=== PATIENT | female | born 1990 | race Two or more races ===

== ENCOUNTER 2020-08-12 06:56 | Inpatient (IN) | payer BC ==
[2020-08-12] MEDS ORDERED: Misoprostol 25 MCG (1/4 of 100 MCG) Tab ONE ×2 (07:44→07:52)
--- NOTE | 2020-08-12 07:47 | PCM.LDHP ---
L&D History of Present Illness - General Date of Service: 08/12/20 Admit Problem/Dx: Admission Diagnosis/Problem Admission Diagnosis/Problem - History of Present Illness Introduction:: 29 year old at 40w3d here for induction of labor secondary to dates. care with myself. record and labs on the chart and reviewed. Regular care Covid June 02. No complications or issues from that. Improves with: Reports: None Worsens with: Reports: None Associated Symptoms: Reports: N - Related Data Allergies/Adverse Reactions: Allergies Allergy/AdvReac Type Severity Reaction Status Date / Time No Known Allergies Allergy Verified 08/12/20 07:09 Past Medical History - Past Health History Medical/Surgical History: Denies Medical/Surgical History H&P Review of Systems - Review of Systems: Review Of Systems: See Below General: Reports: No Symptoms HEENT: Reports: No Symptoms Pulmonary: Reports: No Symptoms Cardiovascular: Reports: No Symptoms Gastrointestinal: Reports: No Symptoms Genitourinary: Reports: No Symptoms Musculoskeletal: Reports: No Symptoms Skin: Reports: No Symptoms Psychiatric: Reports: No Symptoms Neurological: Reports: No Symptoms Hematologic/Lymphatic: Reports: No Symptoms Immunologic: Reports: No Symptoms L&D Exam - Exam Exam: See Below - Vital Signs Weight: 98.656 kg - OB Specific Fundal Height In cm: 40 Contraction Intensity: Irritability Movement: Active Heart Tones: Present Heart Rate (FHR) Variability: Moderate (6-25 bmp) Presentation: Vertex - Exam General: Alert, Oriented HEENT: PERRLA, Conjunctiva Clear, EACs Clear, EOMI, Hearing Intact, Mucosa Moist & Metz, Nares Patent, Normal Nasal Septum, Posterior Pharynx Clear, TMs Clear Neck: Supple, Trachea Midline Lungs: Clear to Auscultation, Normal Respiratory Effort Cardiovascular: Regular Rate, Regular Rhythm GI/Abdominal Exam: Normal Bowel Sounds, Soft, Non-Tender, No Organomegaly, No Distention, No Abnormal Bruit, No Mass, Pelvis Stable Genitourinary: Normal external exam Extremities: Normal Inspection, Normal Range of Motion, Non-Tender, No Pedal Edema, Normal Capillary Refill Skin: Warm, Dry, Intact Neurological: Cranial Nerves Intact, Reflexes Equal Bilateral Psychiatric: Alert, Normal Affect, Normal Mood Problem List Initiated/Reviewed/Updated: Yes Orders Last 24hrs: Active Orders 24 hr Category Date Time Status Patient Status Manage Transfer [TRANSFER] Routine ADT 08/12/20 07:39 Ordered Assessment/Plan Comment:: Admit. Cytotec and recheck in 4 hours or sooner prn. Mayo bulb at that point or if sufficient change pitocin.
[2020-08-12] MEDS ORDERED: Ondansetron 4 MG/2 ML SDV IVPUSH PRN ×2 (08:27→11:21)
[2020-08-12] MEDS ORDERED: Nalbuphine 10 MG/ML Syringe IVPUSH PRN (08:27)
[2020-08-12] MEDS ORDERED: Sodium Chloride 0.9% 10 ML Syringe FLUSH PRN ×2 (08:27→12:32)
[2020-08-12] MEDS ORDERED: Oxytocin/Lactated Ringers 10 UNIT/1,000 ML BAG IV SCH (08:30)
[2020-08-12] MEDS ORDERED: fentaNYL 100 MCG/2 ML SDV EPIDUR PRN (11:21)
[2020-08-12] MEDS ORDERED: ePHEDrine 50 MG/ML SDV IVPUSH PRN (11:21)
--- NOTE | 2020-08-12 11:30 | PCM.PREANE ---
Preanesthetic Assessment - Procedure Proposed Procedure: Epidural - Anesthesia/Transfusion/Family Hx Anesthesia History: Prior Anesthesia Without Reaction Family History of Anesthesia Reaction: No Transfusion History: No Prior Transfusion(s) Intubation History: Unknown - Review of Systems Pulmonary: No Symptoms (No ETOH with ) Cardiovascular: Edema (with slightly) Gastrointestinal: No Symptoms (GERD) Neurological: Numbness (Bilateral CTS with ) Other: Reports: None - Physical Assessment NPO Status Date: 08/12/20 NPO Status Time: 10:00 Vital Signs: Last Vital Signs Temp 36.8 C 08/12/20 08:27 Pulse 99 08/12/20 08:27 Resp 16 08/12/20 08:27 BP 128/74 08/12/20 08:27 Pulse Ox 98 08/12/20 08:27 Height: 1.63 m Weight: 98.656 kg ASA Class: 2 Mental Status: Alert & Oriented x3 Airway Class: Mallampati = 2 (3) Dentition: Reports: Normal Dentition, Caries Thyro-Mental Finger Breadths: 3 Mouth Opening Finger Breadths: 3 ROM/Head Extension: Full Lungs: Clear to Auscultation, Normal Respiratory Effort Cardiovascular: Regular Rate, Regular Rhythm, No Murmurs - Lab Values: Laboratory Last Values WBC 8.80 K/mm3 (3.98-10.04) 08/12/20 08:45 RBC 4.68 M/mm3 (3.98-5.22) 08/12/20 08:45 Hgb 12.9 gm/dl (11.2-15.7) 08/12/20 08:45 Hct 39.8 % (34.1-44.9) 08/12/20 08:45 MCV 85.0 fl (79.4-94.8) 08/12/20 08:45 MCH 27.6 pg (25.6-32.2) 08/12/20 08:45 MCHC 32.4 g/dl (32.2-35.5) 08/12/20 08:45 RDW Std Deviation 46.2 fL (36.4-46.3) 08/12/20 08:45 Plt Count 167 K/mm3 (182-369) L 08/12/20 08:45 MPV 11.9 fl (9.4-12.3) 08/12/20 08:45 Neut % (Auto) 72.6 % (34.0-71.1) H 08/12/20 08:45 Lymph % (Auto) 16.9 % (19.3-51.7) L 08/12/20 08:45 [place] % (Auto) 8.2 % (4.7-12.5) 08/12/20 08:45 Eos % (Auto) 1.5 (0.7-5.8) 08/12/20 08:45 Baso % (Auto) 0.1 % (0.1-1.2) 08/12/20 08:45 Neut # (Auto) 6.39 K/mm3 (1.56-6.13) H 08/12/20 08:45 Lymph # (Auto) 1.49 K/mm3 (1.18-3.74) 08/12/20 08:45 [place] # (Auto) 0.72 K/mm3 (0.24-0.36) H 08/12/20 08:45 Eos # (Auto) 0.13 K/mm3 (0.04-0.36) 08/12/20 08:45 Baso # (Auto) 0.01 K/mm3 (0.01-0.08) 08/12/20 08:45 Above labs reviewed and noted and within acceptable ranges to proceed with epidural if desired. 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: - Past Surgical History HEENT Surgical History: Reports: Oral Surgery GI Surgical History: Reports: Appendectomy - SUBSTANCE USE Tobacco Use Status *Q: Former Tobacco User Tobacco Use Within Last Twelve Months: Cigarettes Recreational Drug Use History: No - HOME MEDS Home Medications: Home Meds Calcium Carbonate/Vitamin D3 [Calcium 500+D Tablet Chew] 1 ea PO DAILY 08/12/20 [History] Ferrous Sulfate [Iron] 325 mg PO DAILY 08/12/20 [History] Vits #93/Iron Fum/FA [ Formula Tablet] 1 ea PO DAILY 08/12/20 [History] - CURRENT (IN HOUSE) MEDS Current Meds: Current Medications Ephedrine Sulfate (Ephedrine Sulfate) 5 mg IVPUSH ASDIRECTED PRN PRN Reason: Hypotension Fentanyl (Sublimaze) 100 mcg EPIDUR Q3H PRN PRN Reason: Pain Stop: 08/12/20 23:00 Fentanyl/Bupivacaine HCl (Fentanyl/Bupivacaine/Ns 2 Mcg-0.125% 100 Ml) 100 ml EPIDUR ASDIRECTED VERO Lactated Ringer's (Ringers, Lactated) 1,000 mls @ 100 mls/hr IV ASDIRECTED VERO Oxytocin/Lactated Ringer's (Pitocin In Lr 10 Units/1,000 Ml) 10 unit in 1,000 mls @ 12 mls/hr IV TITRATE VERO; Protocol Oxytocin/Lactated Ringer's (Pitocin In Lr 10 Units/1,000 Ml) 10 unit in 1,000 mls @ 500 mls/hr IV .CONTINUOUS VERO Misoprostol (Cytotec) 50 mcg VAG ONETIME ONE Stop: 08/12/20 12:01 Nalbuphine HCl (Nubain) 10 mg IVPUSH Q2H PRN PRN Reason: Pain Ondansetron HCl (Zofran) 4 mg IVPUSH Q4H PRN PRN Reason: Nausea/Vomiting Ondansetron HCl (Zofran) 4 mg IVPUSH ONETIME PRN PRN Reason: Nausea/Vomiting Stop: 08/12/20 23:00 Sodium Chloride (Saline Flush) 10 ml FLUSH ASDIRECTED PRN PRN Reason: Keep Vein Open Discontinued Medications Miscellaneous Medication (Phenylephrine 1 Mg/10 Ml-Ns) 0 mg IVPUSH ONETIME ONE Stop: 08/12/20 11:22 Misoprostol (Cytotec) Confirm Administered Dose 25 mcg .ROUTE .STK-MED ONE Stop: 08/12/20 07:45 Last Admin: 08/12/20 07:54 Dose: 25 mcg Documented by: Misoprostol (Cytotec) Confirm Administered Dose 25 mcg .ROUTE .STK-MED ONE Stop: 08/12/20 07:53 Last Admin: 08/12/20 07:54 Dose: 25 mcg Documented by:
[2020-08-12] MEDS ORDERED: Misoprostol 25 MCG (1/4 of 100 MCG) Tab VAG ONE (12:00)
[2020-08-12] MEDS ORDERED: Lactated Ringers 1,000 ML IV SCH (12:32)
[2020-08-12] MEDS: Lactated Ringers 1,000 ML IV SCH ×3 (15:26→19:15)
--- NOTE | 2020-08-12 17:21 | PCM.PNLD ---
Labor Progress Note - VS & Meds Vital Signs: Last Vital Signs Temp 36.8 C 08/12/20 08:27 Pulse 99 08/12/20 08:27 Resp 16 08/12/20 08:27 BP 128/74 08/12/20 08:27 Pulse Ox 98 08/12/20 08:27 Active Medications: Current Medications Ephedrine Sulfate (Ephedrine Sulfate) 5 mg IVPUSH ASDIRECTED PRN PRN Reason: Hypotension Fentanyl (Sublimaze) 100 mcg EPIDUR Q3H PRN PRN Reason: Pain Stop: 08/12/20 23:00 Fentanyl/Bupivacaine HCl (Fentanyl/Bupivacaine/Ns 2 Mcg-0.125% 100 Ml) 100 ml EPIDUR ASDIRECTED VERO Lactated Ringer's (Ringers, Lactated) 1,000 mls @ 100 mls/hr IV ASDIRECTED VERO Last Admin: 08/12/20 15:26 Dose: 100 mls/hr Documented by: Oxytocin/Lactated Ringer's (Pitocin In Lr 10 Units/1,000 Ml) 10 unit in 1,000 mls @ 12 mls/hr IV TITRATE VERO; Protocol Oxytocin/Lactated Ringer's (Pitocin In Lr 10 Units/1,000 Ml) 10 unit in 1,000 mls @ 500 mls/hr IV .CONTINUOUS VERO Nalbuphine HCl (Nubain) 10 mg IVPUSH Q2H PRN PRN Reason: Pain Ondansetron HCl (Zofran) 4 mg IVPUSH Q4H PRN PRN Reason: Nausea/Vomiting Sodium Chloride (Saline Flush) 10 ml FLUSH ASDIRECTED PRN PRN Reason: Keep Vein Open Discontinued Medications Lactated Ringer's (Ringers, Lactated) 1,000 mls @ 40 mls/hr IV ASDIRECTED VERO Miscellaneous Medication (Phenylephrine 1 Mg/10 Ml-Ns) 0 mg IVPUSH ONETIME ONE Stop: 08/12/20 11:22 Last Admin: 08/12/20 16:10 Dose: Not Given Documented by: Misoprostol (Cytotec) Confirm Administered Dose 25 mcg .ROUTE .STK-MED ONE Stop: 08/12/20 07:45 Last Admin: 08/12/20 07:54 Dose: 25 mcg Documented by: Misoprostol (Cytotec) Confirm Administered Dose 25 mcg .ROUTE .STK-MED ONE Stop: 08/12/20 07:53 Last Admin: 08/12/20 07:54 Dose: 25 mcg Documented by: Misoprostol (Cytotec) 50 mcg VAG ONETIME ONE Stop: 08/12/20 12:01 Last Admin: 08/12/20 12:10 Dose: 25 mcg Documented by: Ondansetron HCl (Zofran) 4 mg IVPUSH ONETIME PRN PRN Reason: Nausea/Vomiting Stop: 08/12/20 23:00 Sodium Chloride (Saline Flush) 10 ml FLUSH ASDIRECTED PRN PRN Reason: Keep Vein Open - Uterine Contractions Contraction Intensity: Irritability Uterine Resting Tone: Soft - Monitoring Heart Rate (FHR) Baseline: 150 Heart Rate (FHR) Variability: Moderate (6-25 bmp) Accelerations: Present, 15x15 Decelerations: None Strip Review: Category I - Vaginal Exam Dilation (cm): 1 Effacement (Percent): 20 Station: -3 - Labor Progress (Free Text) Labor Progress: Term induction. Progressing well. Cytotec placed
[2020-08-12] MEDS: Bupivacaine/fentaNYL/NS 100 ML Bag EPIDUR SCH (18:37)
[2020-08-12] MEDS: Oxytocin/Lactated Ringers 10 UNIT/1,000 ML BAG IV SCH (21:49)
[2020-08-13] MEDS ORDERED: Bupivacaine 0.25% 10 ML SDV ONE (02:00)
[2020-08-13] MEDS: Lactated Ringers 1,000 ML IV SCH ×3 (02:25→09:57)
[2020-08-13] MEDS: Bupivacaine/fentaNYL/NS 100 ML Bag EPIDUR SCH ×2 (04:26→14:11)
[2020-08-13] MEDS: Oxytocin/Lactated Ringers 10 UNIT/1,000 ML BAG IV SCH (09:58)
[2020-08-13] MEDS ORDERED: Acetaminophen 325 MG Tab PO ONE (10:23)
[2020-08-13] MEDS ORDERED: Citric Acid/Sodium Citrate Solution 30 ML Cup PO ONE (15:43)
[2020-08-13] MEDS ORDERED: Metoclopramide 10 MG/2 ML SDV IVPUSH ONE (15:43)
[2020-08-13] MEDS ORDERED: Metoclopramide 10 MG/2 ML SDV ONE (15:51)
[2020-08-13] MEDS ORDERED: Citric Acid/Sodium Citrate Solution 30 ML Cup ONE (15:51)
[2020-08-13] MEDS ORDERED: Lactated Ringers 2,000 ML ONE (16:05)
[2020-08-13] MEDS ORDERED: Ketorolac 30 MG/ML SDV ONE (16:05)
[2020-08-13] MEDS ORDERED: ceFAZolin 1 GM Vial ONE (16:05)
[2020-08-13] MEDS ORDERED: Oxytocin 10 Units/1 ML SDV ONE (16:05)
[2020-08-13] MEDS ORDERED: Ondansetron 4 MG/2 ML SDV ONE (16:05)
[2020-08-13] MEDS ORDERED: Morphine PF 10 MG/10 ML SDV ONE (16:06)
[2020-08-13] MEDS ORDERED: Sodium Bicarbonate 8.4% 50 MEQ/50 ML SDV ONE (16:08)
[2020-08-13] MEDS ORDERED: Lidocaine 2% with EPINEPHrine 1:200,000 20 ML SDV ONE (16:08)
[2020-08-13] MEDS ORDERED: Azithromycin 500 MG in Sodium Chloride 0.9% 250 ML IV ONE (16:10)
--- NOTE | 2020-08-13 16:17 | PCM.PNLD ---
Labor Progress Note - VS & Meds Vital Signs: Last Vital Signs Temp 36.8 C 08/12/20 08:27 Pulse 99 08/12/20 08:27 Resp 16 08/12/20 08:27 BP 128/74 08/12/20 08:27 Pulse Ox 98 08/12/20 08:27 Active Medications: Current Medications Ephedrine Sulfate (Ephedrine Sulfate) 5 mg IVPUSH ASDIRECTED PRN PRN Reason: Hypotension Fentanyl/Bupivacaine HCl (Fentanyl/Bupivacaine/Ns 2 Mcg-0.125% 100 Ml) 100 ml EPIDUR ASDIRECTED VERO Last Admin: 08/13/20 14:11 Dose: 100 ml Documented by: Lactated Ringer's (Ringers, Lactated) 1,000 mls @ 100 mls/hr IV ASDIRECTED VERO Last Admin: 08/13/20 09:57 Dose: 100 mls/hr Documented by: Oxytocin/Lactated Ringer's (Pitocin In Lr 10 Units/1,000 Ml) 10 unit in 1,000 mls @ 12 mls/hr IV TITRATE VERO; Protocol Last Titration: 08/13/20 13:30 Dose: 25 munits/min, 150 mls/hr Documented by: Oxytocin/Lactated Ringer's (Pitocin In Lr 10 Units/1,000 Ml) 10 unit in 1,000 mls @ 500 mls/hr IV .CONTINUOUS VERO Azithromycin 500 mg/ Sodium (Chloride) 250 mls @ 250 mls/hr IV ONETIME ONE Stop: 08/13/20 17:09 Nalbuphine HCl (Nubain) 10 mg IVPUSH Q2H PRN PRN Reason: Pain Ondansetron HCl (Zofran) 4 mg IVPUSH Q4H PRN PRN Reason: Nausea/Vomiting Sodium Chloride (Saline Flush) 10 ml FLUSH ASDIRECTED PRN PRN Reason: Keep Vein Open Discontinued Medications Acetaminophen (Tylenol) 650 mg PO NOW ONE Stop: 08/13/20 10:24 Last Admin: 08/13/20 10:27 Dose: 650 mg Documented by: Cefazolin Sodium (Ancef) Confirm Administered Dose 2 gm .ROUTE .STK-MED ONE Stop: 08/13/20 16:06 Citric Acid/Sodium Citrate (Bicitra Solution) 30 ml PO ONETIME ONE Stop: 08/13/20 15:44 Last Admin: 08/13/20 16:07 Dose: 30 ml Documented by: Citric Acid/Sodium Citrate (Bicitra Solution) Confirm Administered Dose 30 ml .ROUTE .STK-MED ONE Stop: 08/13/20 15:52 Fentanyl (Sublimaze) 100 mcg EPIDUR Q3H PRN PRN Reason: Pain Stop: 08/12/20 23:00 Last Admin: 08/12/20 18:37 Dose: 100 mcg Documented by: Lactated Ringer's (Ringers, Lactated) 1,000 mls @ 40 mls/hr IV ASDIRECTED VERO Lactated Ringer's (Ringers, Lactated) Confirm Administered Dose 2,000 mls @ as directed .ROUTE .STK-MED ONE Stop: 08/13/20 16:06 Ketorolac Tromethamine (Toradol) Confirm Administered Dose 30 mg .ROUTE .STK-MED ONE Stop: 08/13/20 16:06 Lidocaine/Epinephrine (Xylocaine-Mpf 2%-Epi 1:200,000) Confirm Administered Dose 20 ml .ROUTE .STK-MED ONE Stop: 08/13/20 16:09 Metoclopramide HCl (Reglan) 10 mg IVPUSH ONETIME ONE Stop: 08/13/20 15:44 Last Admin: 08/13/20 16:07 Dose: 10 mg Documented by: Metoclopramide HCl (Reglan) Confirm Administered Dose 10 mg .ROUTE .STK-MED ONE Stop: 08/13/20 15:52 Miscellaneous Medication (Phenylephrine 1 Mg/10 Ml-Ns) 0 mg IVPUSH ONETIME ONE Stop: 08/12/20 11:22 Last Admin: 08/12/20 16:10 Dose: Not Given Documented by: Misoprostol (Cytotec) Confirm Administered Dose 25 mcg .ROUTE .STK-MED ONE Stop: 08/12/20 07:45 Last Admin: 08/12/20 07:54 Dose: 25 mcg Documented by: Misoprostol (Cytotec) Confirm Administered Dose 25 mcg .ROUTE .STK-MED ONE Stop: 08/12/20 07:53 Last Admin: 08/12/20 07:54 Dose: 25 mcg Documented by: Misoprostol (Cytotec) 50 mcg VAG ONETIME ONE Stop: 08/12/20 12:01 Last Admin: 08/12/20 12:10 Dose: 25 mcg Documented by: Morphine Sulfate (Duramorph Pf) Confirm Administered Dose 10 mg .ROUTE .STK-MED ONE Stop: 08/13/20 16:07 Ondansetron HCl (Zofran) 4 mg IVPUSH ONETIME PRN PRN Reason: Nausea/Vomiting Stop: 08/12/20 23:00 Ondansetron HCl (Zofran) Confirm Administered Dose 4 mg .ROUTE .STK-MED ONE Stop: 08/13/20 16:06 Oxytocin (Pitocin) Confirm Administered Dose 10 unit .ROUTE .STK-MED ONE Stop: 08/13/20 16:06 Sodium Bicarbonate (Sodium Bicarbonate 8.4%) Confirm Administered Dose 50 meq .ROUTE .STK-MED ONE Stop: 08/13/20 16:09 Sodium Chloride (Saline Flush) 10 ml FLUSH ASDIRECTED PRN PRN Reason: Keep Vein Open - Uterine Contractions Contraction Intensity: Irritability Uterine Resting Tone: Soft - Monitoring Heart Rate (FHR) Baseline: 150 Heart Rate (FHR) Variability: Moderate (6-25 bmp) Accelerations: Present, 15x15 Decelerations: None Strip Review: Category I - Vaginal Exam Dilation (cm): 10 Effacement (Percent): 20 Station: -3 Cervical Position: Midposition - Labor Progress (Free Text) Labor Progress: Pushing x 2 hours. tachycardia. Minimal descent. Proceed with 1ltcs. RBA discussed. States understanding and wishes to proceed.
[2020-08-13] MEDS ORDERED: diphenhydrAMINE 50 MG/ML SDV IVPUSH PRN ×2 (16:39→19:00)
[2020-08-13] MEDS ORDERED: Ondansetron 4 MG/2 ML SDV IVPUSH PRN (16:39)
[2020-08-13] MEDS ORDERED: fentaNYL 100 MCG/2 ML SDV IVPUSH PRN (16:39)
[2020-08-13] MEDS ORDERED: Bupivacaine 0.5% 30 ML SDV ONE (16:41)
[2020-08-13] MEDS ORDERED: Meperidine 50 MG/ML Vial ONE (17:00)
--- NOTE | 2020-08-13 17:25 | PCM.POSTAN ---
POST ANESTHESIA ASSESSMENT - MENTAL STATUS Mental Status: Alert, Oriented - VITAL SIGNS Vital Signs: Last Vital Signs Temp 98.2 F 08/12/20 08:27 Pulse 99 08/12/20 08:27 Resp 16 08/12/20 08:27 BP 128/74 08/12/20 08:27 Pulse Ox 98 08/12/20 08:27 1721 80 19 99.5 101/51 - RESPIRATORY Respiratory Status: Respiratory Rate WNL, Airway Patent, O2 Saturation Stable - CARDIOVASCULAR CV Status: Pulse Rate WNL, Blood Pressure Stable - GASTROINTESTINAL GI Status: No Symptoms - PAIN Pain Score: 0 - POST OP HYDRATION Hydration Status: Adequate & Stable
--- NOTE | 2020-08-13 17:49 | PCM.OPNOTE ---
- General Post-Op/Procedure Note Date of Surgery/Procedure: 08/13/20 Operative Procedure(s): primary section Findings: Viable male, 4520g, 8/9 APGARS at 1646. Vertex. Normal uterus tubes and ovaries. Small posterior fibroid 1.5 cm. Pre Op Diagnosis: failure to descend Post-Op Diagnosis: Same Anesthesia Technique: Epidural Primary Surgeon: Rachell Serrano Long Term Care Social Worker: Tammy Mojica Long Term Care Social Worker: Haley Foy Reason Long Term Care Social Worker Was Necessary: retraction, patient safety. Output, Urine Amount: 125 EBL in mLs: 1,000 Drain/Tube Comments:: anthony Complications: None Condition: Good Free Text/Narrative:: Intake & Output 08/13/20 08/13/20 08/13/20 06:59 14:59 22:59 Intake Total 2000 540 3490 Output Total 1500 Balance 2000 -960 3490 The patient was taken to the operating room where epidural anesthesia was dosed to surgical levels without difficulty. The patient was prepped and draped in the usual sterile fashion in the dorsal supine position with a leftward tilt. A Pfannenstiel skin incision was made with the scalpel and carried through to the underlying layer of fascia. The fascia was incised in the midline and extended laterally using Duncan scissors. Blanche clamps were used to elevate the superior aspect of the fascial incision, which was elevated, and the underlying rectus muscles were dissected off bluntly and using Duncan scissors. Attention was then turned to the inferior aspect of the fascial incision, which in similar fashion was grasped with Blanche clamps, elevated, and the underlying rectus muscles were dissected off bluntly and using the duncan. The rectus muscles were dissected in the midline. The peritoneum was entered bluntly; this incision was extended superiorly and inferiorly with good visualization of the bladder. The bladder blade was inserted. The vesicouterine peritoneum was identified and entered sharply using Metzenbaum scissors. This incision was extended laterally and the bladder flap was created digitally. The bladder blade was reinserted. The lower uterine segment was incised in a transverse fashion using the scalpel and with digital traction. Clear fluid was noted. The infant was subsequently delivered by flexing the head to the incision. Body and shoulders followed without difficulty. The cord was clamped and cut. The was subsequently handed to the awaiting long goods drier whose presence had been requested.. The placenta was delivered spontaneously intact with a three-vessel cord noted. The uterus was exteriorized and cleared of all clots and debris. The uterine incision was repaired in 2 layers using 0 monocryl. Hemostasis was visualized. Hemostasis was visualized bilaterally. The uterus was returned to the abdomen. The uterine incision was reexamined and it was noted to be hemostatic. The pelvis was copiously irrigated. The fascia was closed with 1 PDS suture, and the skin was closed with 3-0 monocryl. Sponge, lap, and instrument counts were correct x2. The patient was stable at the completion of the procedure and was subsequently transferred to the recovery room in stable condition.
[2020-08-13] MEDS ORDERED: Acetaminophen/oxyCODONE 325-5 MG Tab PO PRN (19:00)
[2020-08-13] MEDS ORDERED: Dextrose 5%-Lactated Ringers 1,000 ML IV SCH (19:00)
[2020-08-13] MEDS ORDERED: ePHEDrine 50 MG/ML SDV IVPUSH PRN (19:00)
[2020-08-13] MEDS ORDERED: Ketorolac 30 MG/ML SDV IVPUSH SCH (19:00)
[2020-08-13] MEDS ORDERED: Naloxone 0.4 MG/ML SDV IVPUSH PRN (19:00)
[2020-08-13] MEDS: Ketorolac 30 MG/ML SDV IVPUSH SCH (23:15)
[2020-08-14] MEDS: Ketorolac 30 MG/ML SDV IVPUSH SCH ×2 (05:04→11:14)
--- NOTE | 2020-08-14 07:00 | PCM.PNPP ---
- General Info Date of Service: 08/14/20 Subjective Update: Term for failure to descend. Doing well. Pain fairly well controlled. Functional Status: Reports: Pain Controlled - Review of Systems General: Reports: No Symptoms HEENT: Reports: No Symptoms Pulmonary: Reports: No Symptoms Cardiovascular: Reports: No Symptoms Gastrointestinal: Reports: No Symptoms Genitourinary: Reports: No Symptoms Musculoskeletal: Reports: No Symptoms Skin: Reports: No Symptoms Neurological: Reports: No Symptoms Psychiatric: Reports: No Symptoms - General Info Date of Service: 08/14/20 - Patient Data Vital Signs - Most Recent: Last Vital Signs Temp 36.1 C 08/13/20 20:08 Pulse 104 H 08/13/20 20:09 Resp 17 08/13/20 20:08 BP 119/46 L 08/13/20 20:08 Pulse Ox 95 08/13/20 20:09 Weight - Most Recent: 98.656 kg I&O - Last 24 Hours: Intake & Output 08/13/20 08/13/20 08/14/20 14:59 22:59 06:59 Intake Total 540 4340 Output Total 1500 275 125 Balance -960 4065 -125 Lab Results - Last 24 Hours: Laboratory Results - last 24 hr 08/13/20 08/14/20 Range/Units 08:45 04:50 WBC 13.59 H (3.98-10.04) K/mm3 RBC 3.27 L (3.98-5.22) M/mm3 Hgb 9.0 L D (11.2-15.7) gm/dl Hct 28.4 L (34.1-44.9) % MCV 86.9 (79.4-94.8) fl MCH 27.5 (25.6-32.2) pg MCHC 31.7 L (32.2-35.5) g/dl RDW Std Deviation 46.6 H (36.4-46.3) fL Plt Count 118 L (182-369) K/mm3 MPV 12.0 (9.4-12.3) fl Neut % (Auto) 80.6 H (34.0-71.1) % Lymph % (Auto) 12.9 L (19.3-51.7) % [place] % (Auto) 5.2 (4.7-12.5) % Eos % (Auto) 0.8 (0.7-5.8) Baso % (Auto) 0.1 (0.1-1.2) % Neut # (Auto) 10.96 H (1.56-6.13) K/mm3 Lymph # (Auto) 1.75 (1.18-3.74) K/mm3 [place] # (Auto) 0.71 H (0.24-0.36) K/mm3 Eos # (Auto) 0.11 (0.04-0.36) K/mm3 Baso # (Auto) 0.01 (0.01-0.08) K/mm3 Blood Type O NEGATIVE Gel Antibody Screen Negative Med Orders - Current: Current Medications Diphenhydramine HCl (Benadryl) 25 mg IVPUSH Q6H PRN PRN Reason: Itching or Nausea Ephedrine Sulfate (Ephedrine Sulfate) 5 mg IVPUSH SEECOMMENT PRN PRN Reason: Other Ibuprofen (Motrin) 600 mg PO Q6H PRN PRN Reason: mild pain or fever Ketorolac Tromethamine (Toradol) 30 mg IVPUSH Q6H VERO Stop: 08/14/20 11:01 Last Admin: 08/14/20 05:04 Dose: 30 mg Documented by: Naloxone HCl (Narcan) 0.1 mg IVPUSH SEECOMMENT PRN PRN Reason: Respiratory Depression Oxycodone/Acetaminophen (Percocet 325-5 Mg) 2 tab PO Q6H PRN PRN Reason: Pain (severe 7-10) Oxycodone/Acetaminophen (Percocet 325-5 Mg) 1 tab PO Q6H PRN PRN Reason: Pain (moderate 4-6) Discontinued Medications Acetaminophen (Tylenol) 650 mg PO NOW ONE Stop: 08/13/20 10:24 Last Admin: 08/13/20 10:27 Dose: 650 mg Documented by: Bupivacaine HCl (Marcaine 0.5%) Confirm Administered Dose 30 ml .ROUTE .STK-MED ONE Stop: 08/13/20 16:42 Last Admin: 08/13/20 17:44 Dose: 10 ml Documented by: Cefazolin Sodium (Ancef) Confirm Administered Dose 2 gm .ROUTE .STK-MED ONE Stop: 08/13/20 16:06 Citric Acid/Sodium Citrate (Bicitra Solution) 30 ml PO ONETIME ONE Stop: 08/13/20 15:44 Last Admin: 08/13/20 16:07 Dose: 30 ml Documented by: Citric Acid/Sodium Citrate (Bicitra Solution) Confirm Administered Dose 30 ml .ROUTE .STK-MED ONE Stop: 08/13/20 15:52 Last Admin: 08/13/20 23:51 Dose: Not Given Documented by: Diphenhydramine HCl (Benadryl) 25 mg IVPUSH Q6H PRN PRN Reason: Pruritis Stop: 08/13/20 19:00 Ephedrine Sulfate (Ephedrine Sulfate) 5 mg IVPUSH ASDIRECTED PRN PRN Reason: Hypotension Fentanyl (Sublimaze) 100 mcg EPIDUR Q3H PRN PRN Reason: Pain Stop: 08/12/20 23:00 Last Admin: 08/12/20 18:37 Dose: 100 mcg Documented by: Fentanyl (Sublimaze) 50 mcg IVPUSH Q5M PRN PRN Reason: Pain Stop: 08/13/20 19:00 Fentanyl/Bupivacaine HCl (Fentanyl/Bupivacaine/Ns 2 Mcg-0.125% 100 Ml) 100 ml EPIDUR ASDIRECTED VERO Last Admin: 08/13/20 14:11 Dose: 100 ml Documented by: Lactated Ringer's (Ringers, Lactated) 1,000 mls @ 100 mls/hr IV ASDIRECTED VERO Last Admin: 08/13/20 09:57 Dose: 100 mls/hr Documented by: Oxytocin/Lactated Ringer's (Pitocin In Lr 10 Units/1,000 Ml) 10 unit in 1,000 mls @ 12 mls/hr IV TITRATE VERO; Protocol Last Titration: 08/13/20 13:30 Dose: 25 munits/min, 150 mls/hr Documented by: Oxytocin/Lactated Ringer's (Pitocin In Lr 10 Units/1,000 Ml) 10 unit in 1,000 mls @ 500 mls/hr IV .CONTINUOUS VERO Lactated Ringer's (Ringers, Lactated) 1,000 mls @ 40 mls/hr IV ASDIRECTED VERO Azithromycin 500 mg/ Sodium (Chloride) 250 mls @ 250 mls/hr IV ONETIME ONE Stop: 08/13/20 17:09 Last Admin: 08/13/20 16:23 Dose: 250 mls/hr Documented by: Lactated Ringer's (Ringers, Lactated) Confirm Administered Dose 2,000 mls @ as directed .ROUTE .STK-MED ONE Stop: 08/13/20 16:06 Dextrose/Lactated Ringer's (Dextrose 5%-Lactated Ringers) 1,000 mls @ 125 mls/hr IV ASDIRECTED [facility]ERO Stop: 08/14/20 02:59 Last Admin: 08/13/20 21:55 Dose: 125 mls/hr Documented by: Ketorolac Tromethamine (Toradol) Confirm Administered Dose 30 mg .ROUTE .STK-MED ONE Stop: 08/13/20 16:06 Ketorolac Tromethamine (Toradol) 30 mg IVPUSH Q6H [facility] Stop: 08/14/20 07:01 Last Admin: 08/13/20 21:47 Dose: Not Given Documented by: Lidocaine/Epinephrine (Xylocaine-Mpf 2%-Epi 1:200,000) Confirm Administered Dose 20 ml .ROUTE .STK-MED ONE Stop: 08/13/20 16:09 Meperidine HCl (Meperidine) Confirm Administered Dose 50 mg .ROUTE .STK-MED ONE Stop: 08/13/20 17:01 Metoclopramide HCl (Reglan) 10 mg IVPUSH ONETIME ONE Stop: 08/13/20 15:44 Last Admin: 08/13/20 16:07 Dose: 10 mg Documented by: Metoclopramide HCl (Reglan) Confirm Administered Dose 10 mg .ROUTE .STK-MED ONE Stop: 08/13/20 15:52 Last Admin: 08/13/20 23:51 Dose: Not Given Documented by: Miscellaneous Medication (Phenylephrine 1 Mg/10 Ml-Ns) 0 mg IVPUSH ONETIME ONE Stop: 08/12/20 11:22 Last Admin: 08/12/20 16:10 Dose: Not Given Documented by: Miscellaneous Medication (Phenylephrine 1 Mg/10 Ml-Ns) Confirm Administered Dose 1 mg .ROUTE .STK-MED ONE Stop: 08/13/20 16:54 Misoprostol (Cytotec) Confirm Administered Dose 25 mcg .ROUTE .STK-MED ONE Stop: 08/12/20 07:45 Last Admin: 08/12/20 07:54 Dose: 25 mcg Documented by: Misoprostol (Cytotec) Confirm Administered Dose 25 mcg .ROUTE .STK-MED ONE Stop: 08/12/20 07:53 Last Admin: 08/12/20 07:54 Dose: 25 mcg Documented by: Misoprostol (Cytotec) 50 mcg VAG ONETIME ONE Stop: 08/12/20 12:01 Last Admin: 08/12/20 12:10 Dose: 25 mcg Documented by: Morphine Sulfate (Duramorph Pf) Confirm Administered Dose 10 mg .ROUTE .STK-MED ONE Stop: 08/13/20 16:07 Nalbuphine HCl (Nubain) 10 mg IVPUSH Q2H PRN PRN Reason: Pain Ondansetron HCl (Zofran) 4 mg IVPUSH Q4H PRN PRN Reason: Nausea/Vomiting Ondansetron HCl (Zofran) 4 mg IVPUSH ONETIME PRN PRN Reason: Nausea/Vomiting Stop: 08/12/20 23:00 Ondansetron HCl (Zofran) Confirm Administered Dose 4 mg .ROUTE .STK-MED ONE Stop: 08/13/20 16:06 Ondansetron HCl (Zofran) 4 mg IVPUSH ONETIME PRN PRN Reason: Nausea/Vomiting Stop: 08/13/20 19:00 Oxytocin (Pitocin) Confirm Administered Dose 10 unit .ROUTE .STK-MED ONE Stop: 08/13/20 16:06 Sodium Bicarbonate (Sodium Bicarbonate 8.4%) Confirm Administered Dose 50 meq .ROUTE .STK-MED ONE Stop: 08/13/20 16:09 Sodium Chloride (Saline Flush) 10 ml FLUSH ASDIRECTED PRN PRN Reason: Keep Vein Open Sodium Chloride (Saline Flush) 10 ml FLUSH ASDIRECTED PRN PRN Reason: Keep Vein Open - Interaction Support Person: - Recovery Exam Fundal Tone: Firm Fundal Level: At Umbilicus Fundal Placement: Midline Lochia Amount: Small Lochia Color: Rubra/Red Perineum Description: Intact, Minimal Bruising/Swelling Episiotomy/Laceration: None Bladder Status: Indwelling Catheter in Place Urinary Elimination: Indwelling Catheter - Exam General: Alert, Oriented HEENT: Pupils Equal Neck: Supple Lungs: Clear to Auscultation, Normal Respiratory Effort Cardiovascular: Regular Rate, Regular Rhythm GI/Abdominal Exam: Normal Bowel Sounds, Soft, Non-Tender, No Organomegaly, No Distention, No Abnormal Bruit, No Mass, Pelvis Stable Neurological: No New Focal Deficit Psy/Mental Status: Alert, Normal Affect, Normal Mood - Problem List Review Problem List Initiated/Reviewed/Updated: Yes - My Orders Last 24 Hours: My Active Orders 08/13/20 Dinner Regular Diet [DIET] 08/13/20 19:00 Acetaminophen/oxyCODONE [Percocet 325-5 MG] 1 tab PO Q6H PRN Acetaminophen/oxyCODONE [Percocet 325-5 MG] 2 tab PO Q6H PRN Ibuprofen [Motrin] 600 mg PO Q6H PRN Naloxone [Narcan] 0.1 mg IVPUSH SEECOMMENT PRN diphenhydrAMINE [Benadryl] 25 mg IVPUSH Q6H PRN ePHEDrine [ePHEDrine sulfate] 5 mg IVPUSH SEECOMMENT PRN 08/13/20 19:00 Antiembolic Devices [RC] PER UNIT ROUTINE Communication Order [RC] PER UNIT ROUTINE Communication Order [RC] PER UNIT ROUTINE Communication Order [RC] PER UNIT ROUTINE Notify Provider Intake and Out [RC] ASDIRECTED Vital Signs [RC] 03,09,15,21 Assess Lochia [WOMSER] Per Unit Routine Assess Uterine Involution [WOMSER] Per Unit Routine Medication Administration Instruction [OM.PC] Routine Sequential Compression Device [OM.PC] Per Unit Routine 08/13/20 23:00 Ketorolac [Toradol] 30 mg IVPUSH Q6H 08/14/20 17:50 Urinary Catheter Removal [RC] Per Unit Routine - Assessment Assessment:: PPD1 Doing well No complaints
[2020-08-14] MEDS: Acetaminophen/oxyCODONE 325-5 MG Tab PO PRN ×3 (08:10→21:11)
[2020-08-14] MEDS: Ibuprofen 600 MG Tab PO PRN (19:39)
[2020-08-15] MEDS: Ibuprofen 600 MG Tab PO PRN ×2 (01:59→12:31)
[2020-08-15] MEDS: Acetaminophen/oxyCODONE 325-5 MG Tab PO PRN ×2 (02:00→07:50)
--- NOTE | 2020-08-15 07:22 | PCM.DCSUM1 ---
Discharge Summary - Hospital Course Brief History: Admitted for induction. 1LTCS for size greater than dates. Diagnosis: Stroke: No - Discharge Data Discharge Date: 08/15/20 Discharge Disposition: Home, Self-Care 01 Condition: Good - Referral to Home Health Primary Care Physician: Alea Tillman MD - Patient Summary/Data Operative Procedure(s) Performed: primary section - Patient Instructions Diet: Usual Diet as Tolerated Activity: No Strenuous Activities Activity, Other: pelvic rest Driving: Do Not Drive Showering/Bathing: May Shower Wound/Incision Care: Keep Operative Site/Wound Site Clean and Dry Notify Provider of: Fever, Increased Pain, Swelling and Redness, Drainage, Nausea and/or Vomiting - Discharge Plan *PRESCRIPTION DRUG MONITORING PROGRAM REVIEWED*: No *COPY OF PRESCRIPTION DRUG MONITORING REPORT IN PATIENT MIRANDA: No Home Medications: Home Meds Calcium Carbonate/Vitamin D3 [Calcium 500+D Tablet Chew] 1 ea PO DAILY 08/12/20 [History] Ferrous Sulfate [Iron] 325 mg PO DAILY 08/12/20 [History] Vits #93/Iron Fum/FA [ Formula Tablet] 1 ea PO DAILY 08/12/20 [History] Referrals: Rachell Serrano MD [Physician] - (2 weeks) - Discharge Summary/Plan Comment DC Time >30 min.: No - General Info Date of Service: 08/15/20 Functional Status: Reports: Pain Controlled - Review of Systems General: Reports: No Symptoms HEENT: Reports: No Symptoms Pulmonary: Reports: No Symptoms Cardiovascular: Reports: No Symptoms Gastrointestinal: Reports: No Symptoms Genitourinary: Reports: No Symptoms Musculoskeletal: Reports: No Symptoms Skin: Reports: No Symptoms Neurological: Reports: No Symptoms Psychiatric: Reports: No Symptoms - Patient Data Vitals - Most Recent: Last Vital Signs Temp 36.2 C 08/15/20 06:08 Pulse 73 08/15/20 06:08 Resp 15 08/15/20 06:08 BP 98/84 08/15/20 06:08 Pulse Ox 97 08/15/20 06:08 Weight - Most Recent: 98.656 kg Med Orders - Current: Current Medications Diphenhydramine HCl (Benadryl) 25 mg IVPUSH Q6H PRN PRN Reason: Itching or Nausea Ephedrine Sulfate (Ephedrine Sulfate) 5 mg IVPUSH SEECOMMENT PRN PRN Reason: Other Ibuprofen (Motrin) 600 mg PO Q6H PRN PRN Reason: mild pain or fever Last Admin: 08/15/20 01:59 MST Dose: 600 mg Documented by: Naloxone HCl (Narcan) 0.1 mg IVPUSH SEECOMMENT PRN PRN Reason: Respiratory Depression Oxycodone/Acetaminophen (Percocet 325-5 Mg) 2 tab PO Q6H PRN PRN Reason: Pain (severe 7-10) Last Admin: 08/15/20 02:00 Dose: 2 tab Documented by: Oxycodone/Acetaminophen (Percocet 325-5 Mg) 1 tab PO Q6H PRN PRN Reason: Pain (moderate 4-6) Discontinued Medications Acetaminophen (Tylenol) 650 mg PO NOW ONE Stop: 08/13/20 10:24 Last Admin: 08/13/20 10:27 Dose: 650 mg Documented by: Bupivacaine HCl (Marcaine 0.5%) Confirm Administered Dose 30 ml .ROUTE .STK-MED ONE Stop: 08/13/20 16:42 Last Admin: 08/13/20 17:44 Dose: 10 ml Documented by: Bupivacaine HCl (Sensorcaine-Mpf 0.25%) 10 ml .ROUTE .STK-MED ONE Stop: 08/13/20 02:01 Cefazolin Sodium (Ancef) Confirm Administered Dose 2 gm .ROUTE .STK-MED ONE Stop: 08/13/20 16:06 Citric Acid/Sodium Citrate (Bicitra Solution) 30 ml PO ONETIME ONE Stop: 08/13/20 15:44 Last Admin: 08/13/20 16:07 Dose: 30 ml Documented by: Citric Acid/Sodium Citrate (Bicitra Solution) Confirm Administered Dose 30 ml .ROUTE .STK-MED ONE Stop: 08/13/20 15:52 Last Admin: 08/13/20 23:51 Dose: Not Given Documented by: Diphenhydramine HCl (Benadryl) 25 mg IVPUSH Q6H PRN PRN Reason: Pruritis Stop: 08/13/20 19:00 Ephedrine Sulfate (Ephedrine Sulfate) 5 mg IVPUSH ASDIRECTED PRN PRN Reason: Hypotension Fentanyl (Sublimaze) 100 mcg EPIDUR Q3H PRN PRN Reason: Pain Stop: 08/12/20 23:00 Last Admin: 08/12/20 18:37 Dose: 100 mcg Documented by: Fentanyl (Sublimaze) 50 mcg IVPUSH Q5M PRN PRN Reason: Pain Stop: 08/13/20 19:00 Fentanyl/Bupivacaine HCl (Fentanyl/Bupivacaine/Ns 2 Mcg-0.125% 100 Ml) 100 ml EPIDUR ASDIRECTED [facility] Last Admin: 08/13/20 14:11 Dose: 100 ml Documented by: Lactated Ringer's (Ringers, Lactated) 1,000 mls @ 100 mls/hr IV ASDIRECTED VERO Last Admin: 08/13/20 09:57 Dose: 100 mls/hr Documented by: Oxytocin/Lactated Ringer's (Pitocin In Lr 10 Units/1,000 Ml) 10 unit in 1,000 mls @ 12 mls/hr IV TITRATE VERO; Protocol Last Titration: 08/13/20 13:30 Dose: 25 munits/min, 150 mls/hr Documented by: Oxytocin/Lactated Ringer's (Pitocin In Lr 10 Units/1,000 Ml) 10 unit in 1,000 mls @ 500 mls/hr IV .CONTINUOUS VERO Lactated Ringer's (Ringers, Lactated) 1,000 mls @ 40 mls/hr IV ASDIRECTED VERO Azithromycin 500 mg/ Sodium (Chloride) 250 mls @ 250 mls/hr IV ONETIME ONE Stop: 08/13/20 17:09 Last Admin: 08/13/20 16:23 Dose: 250 mls/hr Documented by: Lactated Ringer's (Ringers, Lactated) Confirm Administered Dose 2,000 mls @ as directed .ROUTE .STK-MED ONE Stop: 08/13/20 16:06 Dextrose/Lactated Ringer's (Dextrose 5%-Lactated Ringers) 1,000 mls @ 125 mls/hr IV ASDIRECTED VERO Stop: 08/14/20 02:59 Last Admin: 08/13/20 21:55 Dose: 125 mls/hr Documented by: Ketorolac Tromethamine (Toradol) Confirm Administered Dose 30 mg .ROUTE .STK-MED ONE Stop: 08/13/20 16:06 Ketorolac Tromethamine (Toradol) 30 mg IVPUSH Q6H [facility]ERO Stop: 08/14/20 07:01 Last Admin: 08/13/20 21:47 Dose: Not Given Documented by: Ketorolac Tromethamine (Toradol) 30 mg IVPUSH Q6H VERO Stop: 08/14/20 11:01 Last Admin: 08/14/20 11:14 Dose: 30 mg Documented by: Lidocaine/Epinephrine (Xylocaine-Mpf 2%-Epi 1:200,000) Confirm Administered Dose 20 ml .ROUTE .STK-MED ONE Stop: 08/13/20 16:09 Meperidine HCl (Meperidine) Confirm Administered Dose 50 mg .ROUTE .STK-MED ONE Stop: 08/13/20 17:01 Metoclopramide HCl (Reglan) 10 mg IVPUSH ONETIME ONE Stop: 08/13/20 15:44 Last Admin: 08/13/20 16:07 Dose: 10 mg Documented by: Metoclopramide HCl (Reglan) Confirm Administered Dose 10 mg .ROUTE .STK-MED ONE Stop: 08/13/20 15:52 Last Admin: 08/13/20 23:51 Dose: Not Given Documented by: Miscellaneous Medication (Phenylephrine 1 Mg/10 Ml-Ns) 0 mg IVPUSH ONETIME ONE Stop: 08/12/20 11:22 Last Admin: 08/12/20 16:10 Dose: Not Given Documented by: Miscellaneous Medication (Phenylephrine 1 Mg/10 Ml-Ns) Confirm Administered Dose 1 mg .ROUTE .STK-MED ONE Stop: 08/13/20 16:54 Misoprostol (Cytotec) Confirm Administered Dose 25 mcg .ROUTE .STK-MED ONE Stop: 08/12/20 07:45 Last Admin: 08/12/20 07:54 Dose: 25 mcg Documented by: Misoprostol (Cytotec) Confirm Administered Dose 25 mcg .ROUTE .STK-MED ONE Stop: 08/12/20 07:53 Last Admin: 08/12/20 07:54 Dose: 25 mcg Documented by: Misoprostol (Cytotec) 50 mcg VAG ONETIME ONE Stop: 08/12/20 12:01 Last Admin: 08/12/20 12:10 Dose: 25 mcg Documented by: Morphine Sulfate (Duramorph Pf) Confirm Administered Dose 10 mg .ROUTE .STK-MED ONE Stop: 08/13/20 16:07 Nalbuphine HCl (Nubain) 10 mg IVPUSH Q2H PRN PRN Reason: Pain Ondansetron HCl (Zofran) 4 mg IVPUSH Q4H PRN PRN Reason: Nausea/Vomiting Ondansetron HCl (Zofran) 4 mg IVPUSH ONETIME PRN PRN Reason: Nausea/Vomiting Stop: 08/12/20 23:00 Ondansetron HCl (Zofran) Confirm Administered Dose 4 mg .ROUTE .STK-MED ONE Stop: 08/13/20 16:06 Ondansetron HCl (Zofran) 4 mg IVPUSH ONETIME PRN PRN Reason: Nausea/Vomiting Stop: 08/13/20 19:00 Oxytocin (Pitocin) Confirm Administered Dose 10 unit .ROUTE .STK-MED ONE Stop: 08/13/20 16:06 Sodium Bicarbonate (Sodium Bicarbonate 8.4%) Confirm Administered Dose 50 meq .ROUTE .STK-MED ONE Stop: 08/13/20 16:09 Sodium Chloride (Saline Flush) 10 ml FLUSH ASDIRECTED PRN PRN Reason: Keep Vein Open Sodium Chloride (Saline Flush) 10 ml FLUSH ASDIRECTED PRN PRN Reason: Keep Vein Open - Exam General: Reports: Alert, Oriented HEENT: Reports: Pupils Equal, Pupils Reactive, EOMI, Mucous Membr. Moist/[place] Neck: Reports: Supple Lungs: Reports: Clear to Auscultation, Normal Respiratory Effort Cardiovascular: Reports: Regular Rate, Regular Rhythm GI/Abdominal Exam: Normal Bowel Sounds, Soft, Non-Tender, No Organomegaly, No Distention, No Abnormal Bruit, No Mass, Pelvis Stable Back Exam: Reports: Normal Inspection, Full Range of Motion Extremities: Normal Inspection, Normal Range of Motion, Non-Tender, No Pedal Edema, Normal Capillary Refill Skin: Reports: Warm, Dry, Intact Wound/Incisions: Reports: Healing Well Neurological: Reports: No New Focal Deficit Psy/Mental Status: Reports: Alert, Normal Affect, Normal Mood
--- NOTE | 2020-08-15 12:44 | PCM48HPAN ---
Post Anesthesia Note - EVALUATION WITHIN 48HRS OF ANESTHETIC Vital Signs in Normal Range: Yes Patient Participated in Evaluation: Yes Respiratory Function Stable: Yes Airway Patent: Yes Cardiovascular Function Stable: Yes Hydration Status Stable: Yes Pain Control Satisfactory: Yes Nausea and Vomiting Control Satisfactory: Yes Mental Status Recovered: Yes Vital Signs: Last Vital Signs Temp 97.5 F 08/15/20 10:04 Pulse 95 08/15/20 10:04 Resp 16 08/15/20 10:04 BP 120/70 08/15/20 10:04 Pulse Ox 98 08/15/20 10:04
[2020-08-15] MEDS ORDERED: Betamethasone Acetate/Betamethasone Sod Phosphate 30 MG/5 ML MDV ONE (13:26)
== END 2020-08-15 13:07 | disposition home or self-care (01) | DRG 540 ==
LOC: JD.OB 06:56 → OBSVTOIN 08-13 16:08 → JD.OB 08-13 16:46
PROVIDERS: ADMIT Obstetrics & Gynecology; ATTEND Obstetrics & Gynecology
PROC: 10D00Z1 Extraction of Products of Conception, Low, Open Approach (ICD-10-PCS; principal; 2020-08-13)
PROC: 10907ZC Drainage of Amniotic Fluid, Therapeutic from Products of Conception, Via Natural or Artificial Opening (ICD-10-PCS; 2020-08-13)
PROC: 3E0P7VZ Introduction of Hormone into Female Reproductive, Via Natural or Artificial Opening (ICD-10-PCS; 2020-08-13)
PROC: 3E0R3BZ Introduction of Anesthetic Agent into Spinal Canal, Percutaneous Approach (ICD-10-PCS; 2020-08-13)
PROC: 00HU33Z Insertion of Infusion Device into Spinal Canal, Percutaneous Approach (ICD-10-PCS; 2020-08-13)
DX: O62.1 Secondary uterine inertia (principal); O34.13 Maternal care for benign tumor of corpus uteri, third trimester; Z37.0 Single live birth; Z3A.40 40 weeks gestation of pregnancy; Z87.891 Personal history of nicotine dependence; Z90.49 Acquired absence of other specified parts of digestive tract
CPT/HCPCS: 01967; 01968; 36415; 51702; 59025; 85025; 86592; 86850; 86900; 86901; 94762; A9270-GY; J0456; J0690; J0702; J1885; J2175; J2270; J2370; J2405; J2590; J2765; J3010; J3490; J7050; J7120; J7121

== ENCOUNTER 2023-01-11 06:56 | Inpatient (IN) | payer BC ==
[~2023-01-11 06:56] MED LIST: Lidocaine 1% 10 ML MDV ONE
[2023-01-11] MEDS ORDERED: Acetaminophen 325 MG Tab PO PRN ×2 (07:04→19:25)
[2023-01-11] MEDS ORDERED: Nalbuphine 10 MG/0.5 ML Syringe IVPUSH PRN (07:04)
[2023-01-11] MEDS ORDERED: Sodium Chloride 0.9% 10 ML Syringe FLUSH PRN (07:04)
[2023-01-11] MEDS ORDERED: Ondansetron 4 MG/2 ML SDV IVPUSH PRN (07:04)
[2023-01-11] MEDS ORDERED: Oxytocin/Lactated Ringers 10 UNIT/1,000 ML BAG IV SCH ×2 (07:15)
[2023-01-11] MEDS ORDERED: Ampicillin 2 GM in Sodium Chloride 0.9% 100 ML IV ONE (07:30)
[2023-01-11] MEDS ORDERED: diphenhydrAMINE 50 MG/ML SDV IVPUSH PRN (07:35)
[2023-01-11] MEDS ORDERED: ePHEDrine 50 MG/ML SDV IVPUSH PRN (07:35)
[2023-01-11] MEDS ORDERED: Bupivacaine/fentaNYL/NS 100 ML Bag EPIDUR PRN (07:35)
[2023-01-11] MEDS ORDERED: fentaNYL 100 MCG/2 ML SDV EPIDUR PRN (07:35)
[2023-01-11] MEDS: Lactated Ringers 1,000 ML IV SCH ×3 (07:59→16:24)
[2023-01-11] MEDS ORDERED: Sodium Chloride 0.9% 10 ML Syringe FLUSH SCH (09:00)
[2023-01-11] MEDS: Ampicillin 1 GM in Sodium Chloride 0.9% 100 ML IV SCH ×2 (12:00→16:17)
[2023-01-11] MEDS ORDERED: Ampicillin 1 GM in Sodium Chloride 0.9% 100 ML IV SCH (13:30)
[2023-01-11] MEDS ORDERED: Fluticasone NASAL Spray 16 GM Bottle NASBOTH SCH (17:15)
[2023-01-11] MEDS ORDERED: Benzocaine/Menthol 20%-0.5% Spray 78 GM Cannister TOP PRN (19:25)
[2023-01-11] MEDS ORDERED: Docusate Sodium 100 MG Cap PO PRN (19:25)
[2023-01-11] MEDS ORDERED: Witch Hazel Medicated Pads 40/Jar TOP PRN (19:25)
[2023-01-11] MEDS: Ibuprofen 600 MG Tab PO PRN (20:08)
[2023-01-12] MEDS: Ibuprofen 600 MG Tab PO PRN ×2 (08:15→14:34)
== END 2023-01-12 19:20 | disposition home or self-care (01) | DRG 560 ==
LOC: JD.OB 06:56 → OBSVTOIN 18:20 → JD.OB 18:20
PROVIDERS: ADMIT Obstetrics & Gynecology; ATTEND Obstetrics & Gynecology
PROC: 10E0XZZ Delivery of Products of Conception, External Approach (ICD-10-PCS; principal; 2023-01-11)
PROC: 0KQM0ZZ Repair Perineum Muscle, Open Approach (ICD-10-PCS; principal; 2023-01-11)
PROC: 10907ZC Drainage of Amniotic Fluid, Therapeutic from Products of Conception, Via Natural or Artificial Opening (ICD-10-PCS; principal; 2023-01-11)
PROC: 3E033VJ Introduction of Other Hormone into Peripheral Vein, Percutaneous Approach (ICD-10-PCS; principal; 2023-01-11)
DX: O26.893 Other specified pregnancy related conditions, third trimester (principal); O34.219 Maternal care for unspecified type scar from previous cesarean delivery; O99.824 Streptococcus B carrier state complicating childbirth; O99.344 Other mental disorders complicating childbirth; F41.9 Anxiety disorder, unspecified; Z3A.39 39 weeks gestation of pregnancy; O70.1 Second degree perineal laceration during delivery; Z67.41 Type O blood, Rh negative; Z37.0 Single live birth; Z90.49 Acquired absence of other specified parts of digestive tract; Z87.891 Personal history of nicotine dependence; Z86.16 Personal history of COVID-19
CPT/HCPCS: 36415; 51701; 59025; 59409; 85027; 85461; 86592; 86850; 86900; 86901; A9270-GY; J0290; J2590; J2790; J3010; J3490; J7120